=== PATIENT | female | born 1990 | race Hispanic/Latino ===

== ENCOUNTER 2023-04-09 19:54 | Emergency (ER) | payer SELFPAY ==
[~2023-04-09] VITALS: Ht 154.9 cm; Wt 70.8 kg
[2023-04-09] MEDS ORDERED: ONDANSETRON HCL INJ 2MG/ML 2ML 2 MG/ML VIAL IV STA (20:07)
[2023-04-09] MEDS ORDERED: SODIUM CHLORIDE 0.9% 1000ML 1,000 ML IV SCH (20:15)
[2023-04-09] MEDS ORDERED: FAMOTIDINE 20 MG/2 ML VIAL IV STA (20:19)
[2023-04-09] MEDS ORDERED: SODIUM CHLORIDE 0.9% 1000ML 1,000 ML ONE (20:25)
[2023-04-09] MEDS ORDERED: ONDANSETRON HCL INJ 2MG/ML 2ML 2 MG/ML VIAL ONE (20:25)
[2023-04-09] MEDS ORDERED: FAMOTIDINE 20 MG/2 ML VIAL IV ONE (21:07)
[2023-04-09] MEDS ORDERED: ONDANSETRON ODT4 MG PO (22:16)
[2023-04-09 22:40] VITALS: BP 125/69; PULSE 82; RESP 18; TEMP 98.6; O2SAT 99
== END 2023-04-09 22:40 | disposition home or self-care (01) ==
LOC: FSED 20:03
DX: O21.9 Vomiting of pregnancy, unspecified (principal); O26.91 Pregnancy related conditions, unspecified, first trimester; R10.13 Epigastric pain; R51.9 Headache, unspecified
CPT/HCPCS: 76801; 80048; 80076; 81003; 81025; 85025; 96374; 99284; J2405; J7030